=== PATIENT | female | born 1980 | race Caucasian/White ===

== ENCOUNTER 2020-04-02 20:59 | Emergency (ER) | payer OTHER, SELFPAY ==
[2020-04-02 21:00] VITALS: BP 180/107; PULSE 99; RESP 20; TEMP 36.1; O2SAT 100
--- NOTE | 2020-04-02 21:19 | ED.GENADULT ---
HPI - General Adult General Chief complaint: Unspecified Stated complaint: Strep throat, throat pain Time Seen by Provider: 04/02/20 21:07 Source: patient Mode of arrival: ambulatory Limitations: no limitations History of Present Illness HPI narrative: This is a 40 year old female that presents to the ER for sore throat x 3 days. Associated with congestion and otalgia. Reports her boyfriend was recently diagnosed with strep. Denies fever or cough. Related Data Home Medications Medication Instructions Recorded Confirmed No Home Medications 04/02/20 04/02/20 Allergies Allergy/AdvReac Type Severity Reaction Status Date / Time No Known Allergies Allergy Verified 04/02/20 21:34 SEA FOOD Allergy Mild MAKES Uncoded 04/02/20 21:34 TONGUE/THROAT ITCH Review of Systems Review of Systems: Narrative: CONSTITUTIONAL: Denies fever ENT: Reports rhinorrhea, congestion, sore throat and otalgia. RESPIRATORY: Denies cough All systems reviewed & are unremarkable except as noted in HPI and below PMFSH Past Medical History Medical History (Updated 04/02/20 @ 21:59 by Evie Simon PA-C) History of migraine Surgical History Surgical History (Updated 04/02/20 @ 21:21 by Evie Simon PA-C) History of Exam Narrative: Exam Narrative: GENERAL: Well-appearing, obese, and in no acute distress. HEAD: Normocephalic, atraumatic. EYES: EOMI. ENT: Turbinates swollen and pale. Mucous membranes moist. Oropharynx with mild tonsillar hypertrophy and erythema, no exudate or other lesions. Uvula midline. No trismus. Bilateral TMs pearly garcia non-bulging NECK: Supple. No adenopathy or masses. CHEST: Clear to auscultation. No respiratory distress. No wheezes rales or rhonchi HEART: Regular rate and rhythm. No murmur heard. Normal peripheral pulses. EXTREMITIES: Normal range of motion. No edema. SKIN: Warm, dry, no rash. NEURO: No focal deficits. Alert and oriented x3. PSYCH: Normal mood and affect Course Vital Signs Vital signs: Vital Signs Temperature 97 F L 04/02/20 21:00 Pulse Rate 99 04/02/20 21:00 Respiratory Rate 20 04/02/20 21:00 Blood Pressure 180/107 H 04/02/20 21:00 Pulse Oximetry 100 04/02/20 21:00 Temperature 97 F L 04/02/20 21:00 Pulse Rate 99 04/02/20 21:00 Respiratory Rate 20 04/02/20 21:00 Blood Pressure 180/107 H 04/02/20 21:00 Pulse Oximetry 100 04/02/20 21:00 Medical Decision Making MDM Narrative Medical decision making narrative: Patient presents the emergency department for sore throat x3 days. She is afebrile and nontoxic-appearing. Oropharynx with mild, symmetric tonsillar hypertrophy and erythema. Uvula is midline. Rapid strep was negative. Spoke with patient about treatment of viral pharyngitis. She is to follow-up with primary care doctor. She was given warnings to return to the ER Vital Signs Vital Signs: Vital Signs Temperature 97 F L 04/02/20 21:00 Pulse Rate 99 04/02/20 21:00 Respiratory Rate 20 04/02/20 21:00 Blood Pressure 180/107 H 04/02/20 21:00 Pulse Oximetry 100 04/02/20 21:00 Temperature 97 F L 04/02/20 21:00 Pulse Rate 99 04/02/20 21:00 Respiratory Rate 20 04/02/20 21:00 Blood Pressure 180/107 H 04/02/20 21:00 Pulse Oximetry 100 04/02/20 21:00 Lab Data Lab results reviewed: Yes I reviewed the patient's lab results. Labs: Strep Screen Presumptive Negative *(Reference Range: Negative)* Critical Care Time Critical Care Time Critical Care Time: No Discharge Plan Discharge Clinical Impression: Pharyngitis Qualifiers: Pharyngitis/tonsillitis etiology: unspecified etiology Qualified Code(s): J02.9 - Acute pharyngitis, unspecified Patient Disposition: Home, Self-Care Condition: Stable Instructions: Antibiotic Form, Pharyngitis (ED) Additional Instructions: Return to the emergency department for worsening sympt
[2020-04-02 22:07] VITALS: BP 152/104; PULSE 91; RESP 16
== END 2020-04-02 22:16 | disposition home or self-care (01) ==
PROVIDERS: Emergency Provider Emergency Medicine
DX: J02.9 Acute pharyngitis, unspecified (principal)
CPT/HCPCS: 87081; 87880; 99283; A9270

== ENCOUNTER 2020-05-28 18:40 | Emergency (ER) | payer OTHER, SELFPAY ==
[2020-05-28 18:57] VITALS: BP 142/69; PULSE 91; RESP 16; TEMP 37.2; O2SAT 100
--- NOTE | 2020-05-28 19:06 | ED.SKABFB ---
HPI - Skin/Abscess/Foreign Bdy General Chief complaint: Skin/Abscess/Foreign Body Stated complaint: Hives Time Seen by Provider: 05/28/20 19:06 Source: patient Mode of arrival: ambulatory Limitations: no limitations History of Present Illness HPI narrative: Asia Owens is a 40-year-old female who comes to [facility] with hives over abdomen back legs and face there is no respiratory compromise no swelling of the mouth or mucosal membranes; started on Monday, on abdomen, scrotal or since then. Denies any drug intake., Change in detergent, any change in food Related Data Allergies Allergy/AdvReac Type Severity Reaction Status Date / Time No Known Allergies Allergy Verified 05/28/20 18:52 SEA FOOD Allergy Mild MAKES Uncoded 05/28/20 18:52 TONGUE/THROAT ITCH Review of Systems Review of Systems: Narrative: CONSTITUTIONAL: Denies fever, chills, sweats. EYES: Denies visual changes, redness, discharge. ENT: Denies rhinorrhea, congestion, sore throat, otalgia. CARDIOVASCULAR: Denies chest pain, palpitations, edema. RESPIRATORY: Denies dyspnea, wheezing, cough GASTROINTESTINAL: Denies abdominal pain, nausea, vomiting, diarrhea. GENITOURINARY: Denies dysuria, hematuria, abnormal discharge SKIN: Denies rash or itching. Red papular rash covers chest back thighs legs feet there are hives on her ears and on her cheeks NEUROLOGIC: Denies numbness, or focal weakness. PSYCHIATRIC: Denies anxiety or depression. PMFSH Past Medical History Medical History History of migraine Surgical History Surgical History History of Social History Social History (Updated 05/28/20 @ 19:09 by Fransisca Aguirre CNP) Smoking status: Never smoker Alcohol intake: current Gender identity (if verbalized by the patient): Female Comments At time of signature, I agree with nursing past medical, surgical, social and family history. There is no relevant family history pertinent to the presenting complaint. Exam Narrative: Exam Narrative: GENERAL: This is a well-nourished, well-developed patient, in moderate distress. HEAD: normocephalic, atraumatic. EYES: Sclera clear/white. Vision is grossly intact. EARS: External ears normal, . Hearing grossly intact. NOSE: External nose normal without nasal discharge, nares without redness, no rhinorrhea. THROAT: Mucous membranes moist, posterior pharynx no swelling of the pharynx or mouth no respiratory difficulty no change in voice NECK: Neck supple, non-tender CARDIOVASCULAR: Regular rate and rhythm without murmurs, gallops, or rubs. RESPIRATORY: Clear to auscultation. Breath sounds equal bilaterally. No wheezes, rales, or rhonchi. GASTROINTESTINAL: Abdomen soft, non-tender, SKIN: warm, intact with papular rash over her chest back thighs feet arms left ear and cheeks; rash is pruritic. NEURO: awake, alert, and oriented to person, place and time. There were no obvious focal neurologic abnormalities. Steady gait EXTREMITIES: Normal range of motion. BACK: Nontender without deformity Course Course Emergency Course: Patient comes to [facility] with whole body rash of unknown etiology it started on Monday and is spread since then; no respiratory difficulty no swelling of the mouth or pharynx Started on Solu-Medrol 25 mg IM and Pepcid 20 mg p.o. We will start patient on Medrol Dosepak with Pepcid and Benadryl Patient to go to the emergency room if rash and symptoms of shortness of breath or swelling of mouth. Follow-up with primary care physician Vital Signs Vital signs: Vital Signs Temperature 98.9 F 05/28/20 18:57 Pulse Rate 91 05/28/20 18:57 Respiratory Rate 16 05/28/20 18:57 Blood Pressure 142/69 H 05/28/20 18:57 Pulse Oximetry 100 05/28/20 18:57 Temperature 98.9 F 05/28/20 18:57 Pulse Rate 91 05/28/20 18:57 Respiratory Rate 16 05/28/20
[2020-05-28] MEDS: FAMOTIDINE 20 MG TABLET PO (19:14)
[2020-05-28] MEDS: methylPREDNISolone SOD SUCC 125 MG VIAL IM (19:14)
== END 2020-05-28 19:49 | disposition home or self-care (01) ==
PROVIDERS: Emergency Provider Nurse Practitioner
DX: R21 Rash and other nonspecific skin eruption (principal); T78.40XA Allergy, unspecified, initial encounter
CPT/HCPCS: 96372; 99213; A9270; G0463; J2930

== ENCOUNTER 2021-04-05 09:51 | Emergency (ER) | payer OTHER, SELFPAY ==
[2021-04-05 10:02] VITALS: BP 138/91; PULSE 90; RESP 16; TEMP 36.6; O2SAT 100
--- NOTE | 2021-04-05 10:33 | ED.DENTAL ---
HPI - Dental/Oral General Chief complaint: Dental/Oral Stated complaint: Tooth Pain Time Seen by Provider: 04/05/21 10:31 Mode of arrival: ambulatory Limitations: no limitations History of Present Illness HPI Narrative: 41-year-old female presents with concern for left lower dental pain. She reports swelling in the left lower jaw. Reports she has cavities and irritated gums in that area. Reports she has a dentist appointment on . Reports the pain is 10/10. Reports she has been taking Aleve. She reports when she takes ibuprofen she gets chills and shakes. She denies trouble swallowing, trouble speaking, fever. MD Complaint: tooth pain Severity scale (1-10): 10 Related Data Allergies Allergy/AdvReac Type Severity Reaction Status Date / Time No Known Allergies Allergy Verified 04/05/21 10:19 SEA FOOD Allergy Mild MAKES Uncoded 04/05/21 10:19 TONGUE/THROAT ITCH Review of Systems Review of Systems: CONSTITUTIONAL: Denies malaise, chills, sweats, or fever. EYES: Denies visual changes ENT: Denies rhinorrhea, congestion, sinus pain, otalgia or sore throat. Reports left lower dental pain and left jaw swelling CARDIOVASCULAR: Denies chest pain, palpitations RESPIRATORY: Denies cough or dyspnea. SKIN: Denies rash or itching. MUSCULOSKELETAL: Denies myalgia. NEUROLOGIC: Denies numbness, weakness, or headache. All systems reviewed & are unremarkable except as noted in HPI and below PMFSH Past Medical History Medical History History of migraine Surgical History Surgical History History of Social History Social History (Updated 05/28/20 @ 19:09 by Fransisca Aguirre CNP) Smoking status: Never smoker Alcohol intake: current Gender identity (if verbalized by the patient): Female Comments At time of signature, agree with nursing past medical, surgical, social and family history. There is no relevant family history pertinent to the presenting complaint Exam Narrative: GENERAL: Well-appearing, well-nourished, and in no acute distress. HEAD: Normocephalic, atraumatic. EYES: PERRLA, sclera clear ENT: Nares clear, turbinates pink, no rhinorrhea or epistaxis. Mucous membranes moist. TM pearly garcia with sharp light reflex bilaterally; no tragal tenderness. Oropharynx without erythema or lesions. Tonsils not enlarged and without exudate. Caries noted to teeth 20, 19, 18 with gingival erythema, no periapical abscess noted NECK: Supple. No lymphadenopathy. CHEST: No respiratory distress. Speaks in full sentences. HEART: Regular rate and rhythm. SKIN: Warm, dry, no visible rash. NEURO: Alert and oriented x3. PSYCH: Normal mood and affect Course Course Emergency Course: Patient is aware of diagnosis, understands and agrees to treatment plan. Anticipatory guidance given. Patient agrees to follow-up as directed and is aware of reasons to seek care at the emergency department. Portions of this record may have been created with voice recognition software Vital Signs Vital signs: Vital Signs Temperature 97.9 F 04/05/21 10:02 Pulse Rate 90 04/05/21 10:02 Respiratory Rate 16 04/05/21 10:02 Blood Pressure 138/91 H 04/05/21 10:02 Pulse Oximetry 100 04/05/21 10:02 Temperature 97.9 F 04/05/21 10:02 Pulse Rate 90 04/05/21 10:02 Respiratory Rate 16 04/05/21 10:02 Blood Pressure 138/91 H 04/05/21 10:02 Pulse Oximetry 100 04/05/21 10:02 Reviewed. Procedures Nerve Block Nerve Block 1: Nerve block date: 04/05/21 Nerve block time: 10:40 Time out performed: Yes Local Anesthetic: lidocaine 1% and with epi Amount of anesthesia used (mL): 1.5 Side: left Intraoral Nerve Block: inferior alveolar Procedure Successful: Yes Patient Tolerated Procedure: well Complications: none MDM - Dental/Oral MDM
== END 2021-04-05 11:00 | disposition home or self-care (01) ==
PROVIDERS: Emergency Provider Nurse Practitioner
DX: K04.7 Periapical abscess without sinus (principal)
CPT/HCPCS: 64999; 99213; G0463

== ENCOUNTER 2022-01-31 08:38 | Emergency (ER) | payer OTHER, SELFPAY ==
--- NOTE | ~2022-01-31 | XR_ITS ---
EXAMINATION: XR knee LT min 4V DATE: 01/31/2022 09:26 INDICATION: Left knee pain TECHNIQUE: Four views of the left knee were obtained. COMPARISON: None. FINDINGS: Alignment is normal. No fracture or osteochondral lesion. There is mild tricompartmental os teoarthritis characterized by tiny marginal osteophytes. No joint effusion/synovitis. Soft tissues a re unremarkable. IMPRESSION: 1. No acute osseous abnormality. Reviewed, dictated and finalized at location A.
[2022-01-31 08:56] VITALS: BP 143/87; PULSE 92; RESP 18; TEMP 36.2; O2SAT 100
--- NOTE | 2022-01-31 08:56 | ED.LOWEXIN ---
HPI - Extremity Injury (Lower) General Chief Complaint: Extremity Injury, Lower Stated Complaint: Left Knee Pain Time Seen by Provider: 01/31/22 08:56 Source: patient, RN notes reviewed and old records reviewed Mode of arrival: ambulatory Limitations: no limitations History of Present Illness HPI Narrative: 41-year-old female presents to the [facility] with complaints of left knee pain for several weeks. Has tried multiple [id number]-juypbur products with minimal to no relief. Related Data Allergies Allergy/AdvReac Type Severity Reaction Status Date / Time SEA FOOD Allergy Mild MAKES Uncoded 01/31/22 08:55 TONGUE/THROAT ITCH Review of Systems Review of Systems: All systems reviewed & are unremarkable except as noted in HPI and below Constitutional: Constitutional: Reports no additional constitutional complaints, Denies chills and Denies fever(s) Eyes: Eyes: Reports no additional eye complaints ENT: Reports system reviewed and no additional complaints, except as documented Cardiovascular: Cardiovascular: Reports no additional cardiovascular complaints Respiratory: Respiratory: Reports no additional respiratory complaints Gastrointestinal: Gastrointestinal: Reports no additional gastrointestinal complaints Musculoskeletal: Musculoskeletal: Reports as per HPI and Reports arthralgias (Left knee) Integumentary/Breasts: Skin/Breast: Reports system reviewed and no additional complaints, except as docu Neurologic: Reports system reviewed and no additional complaints, except as documented Psychiatric: Psychiatric: Reports no additional psychiatric complaints Allergic/Immunologic: Allergic/Immunologic: Reports no additional allergic/immunologic complaints PMFSH Past Medical History Medical History History of migraine Surgical History Surgical History History of Social History Social History Smoking status: Never smoker Alcohol intake: current Gender identity (if verbalized by the patient): Female Comments At the time of my signature, I reviewed and agree with the nursing past medical, surgical, social, and family history. There is no relevant family history pertinent to the patient complaint. Exam Const: General: healthy appearing, no acute distress, alert and well nourished Nutritional Appearance: well nourished Orientation/consciousness: patient oriented x3 Limitations: no limitations HENMT: Head: normal to inspection Ears: external ears normal Eyes: General: appearance normal, both eyes and all related structures Pupils: Equal, round and reactive pupils present Neck: Neck: normal visual inspection, no lymphadenopathy and no meningeal signs Chest: Chest palpation & inspection: normal inspection of the chest Resp: Effort & Inspection: normal respiratory effort and no use of accessory muscles Auscultation: clear to auscultation bilaterally, no crackles, no rales, no rhonchi and no wheezes Cardio: Rate: regular rate Rhythm: regular rhythm Back/Spine/Pelvis: Cervical Spine: normal cervical lordosis Thoracic/Lumbar Spine: thoracic and lumbar spine normal to inspection Skin: General skin exam: normal color Rashes: no rashes Wounds: no wounds Neuro: General: patient oriented x3, moves all extremities, no meningeal signs and no focal motor deficits Cranial nerves: Yes Equal, round and reactive pupils present Speech: normal speech Gait exam (Neuro): Normal gait present Extrem: General: normal to inspection, full ROM and capillary refill normal Left lower extremity: full ROM and knee Details: tenderness Other: Walks with a slight limp favoring the left side. Psych: Appearance: grossly normal and well kempt Mental Status: mental status grossly normal Affect: normal affect Attitude: cooperative Thought content: Yes
== END 2022-01-31 09:57 | disposition home or self-care (01) ==
PROVIDERS: Emergency Provider Nurse Practitioner
DX: M17.9 Osteoarthritis of knee, unspecified (principal)
CPT/HCPCS: 73564; 99213; G0463

== ENCOUNTER 2022-03-26 08:42 | Emergency (ER) | payer OTHER, SELFPAY ==
--- NOTE | 2022-03-26 09:27 | ED.URI ---
HPI - URI/Sore Throat General Stated Complaint: pink eye,grace,sore throat,head pressure Time Seen by Provider: 03/26/22 09:50 Source: patient and RN notes reviewed Mode of arrival: ambulatory Limitations: no limitations History of Present Illness HPI Narrative: 42-year-old female presents concern for nasal congestion, rhinorrhea, head pressure, sore throat. Reports her are itching and had drainage. Reports her daughter has similar symptoms. MD elicited complaint: rhinorrhea and other (Eye itching) Related Data Home Medications Medication Instructions Recorded Confirmed No Home Medications 03/26/22 03/26/22 Allergies Allergy/AdvReac Type Severity Reaction Status Date / Time SEA FOOD Allergy Mild MAKES Uncoded 03/26/22 09:50 TONGUE/THROAT ITCH Review of Systems Review of Systems: CONSTITUTIONAL: Denies malaise, chills, sweats, or fever. EYES: Denies visual changes. Reports bilateral itching, redness, green discharge. ENT: Reports rhinorrhea, congestion. Denies sinus pain, otalgia and sore throat. CARDIOVASCULAR: Denies chest pain, palpitations, or edema. RESPIRATORY: Denies cough. Denies dyspnea. GASTROINTESTINAL: Denies abdominal pain, nausea, vomiting, diarrhea SKIN: Denies rash or itching. MUSCULOSKELETAL: Denies myalgia. NEUROLOGIC: Denies headache. All systems reviewed & are unremarkable except as noted in HPI and below PMFSH Past Medical History Medical History History of migraine Surgical History Surgical History History of Social History Social History Smoking status: Never smoker Alcohol intake: current Gender identity (if verbalized by the patient): Female Comments At time of signature, agree with nursing past medical, surgical, social and family history. There is no relevant family history pertinent to the presenting complaint Exam Narrative: GENERAL: Well-appearing, well-nourished, and in no acute distress. HEAD: Normocephalic EYES: PERRLA,. Bilateral sclerae and conjunctivae mildly injected without drainage ENT: Nares clear, clear discharge. Mucous membranes moist. Tonsils not enlarged and without exudate, no drooling, no hoarseness, no trismus, uvula midline. NECK: Supple. No lymphadenopathy CHEST: No respiratory distress, speaks in full sentences. HEART: Regular rate and rhythm. SKIN: Warm, dry, no rash. NEURO: Alert and oriented x3. PSYCH: Normal mood and affect Course Course Emergency Course: Patient is aware of diagnosis, understands and agrees to treatment plan. Anticipatory guidance given. Patient agrees to follow-up as directed and is aware of reasons to seek care at the emergency department. Portions of this record may have been created with voice recognition software Level of Care: Express Care Visit Vital Signs Vital signs: Reviewed. MDM - URI/Sore Throat MDM Narrative Medical decision making narrative: Differential diagnosis considered: Parmar virus, strep pharyngitis, allergic rhinitis, upper respiratory tract infection, sinusitis, rhinosinusitis, nasopharyngitis. viral pharyngitis, otitis media, otitis externa, pneumonia, bronchitis, viral cough syndrome, viral syndrome, and influenza. Exam findings show no acute concerns or changes; patient is non-toxic appearing and is in no distress. Patient is appropriate for outpatient treatment and follow-up. Lab Data Attestation: I reviewed the patient's lab results. Critical Care Time Critical Care Time Critical Care Time: No Discharge Plan Discharge Clinical Impression: Conjunctivitis Patient Disposition: Home, Self-Care Condition: Stable Instructions: Conjunctivitis (ED) Additional Instructions: Do not touch or rub your eye. Use a warm or cool washcloth on your eye for comfort Use eyedrops as directed Practice
[2022-03-26 09:45] VITALS: BP 140/82; PULSE 80; RESP 18; TEMP 36.4; O2SAT 100
== END 2022-03-26 10:39 | disposition home or self-care (01) ==
PROVIDERS: Emergency Provider Nurse Practitioner
DX: H10.9 Unspecified conjunctivitis (principal)
CPT/HCPCS: 99211; G0463

== ENCOUNTER 2022-04-04 08:10 | Emergency (ER) | payer OTHER, SELFPAY ==
[2022-04-04 08:15] VITALS: BP 132/77; PULSE 88; RESP 12; TEMP 36.6; O2SAT 100
--- NOTE | 2022-04-04 08:39 | ED.URI ---
HPI - URI/Sore Throat General Chief Complaint: Upper Respiratory Infection Stated Complaint: Ear/Nose/ Throat Time Seen by Provider: 04/04/22 08:13 Source: patient Mode of arrival: ambulatory Limitations: no limitations History of Present Illness HPI Narrative: 42-year-old female presents to [facility] care with complaints of sore throat, intermittent fevers, cough, congestion and runny nose for the past 10 days. Patient reports that she was evaluated here on March 26, diagnosed with conjunctivitis and was given and prescription for neomycin eye drops. Patient reports that she feels that her symptoms have worsened. Patient's daughter currently has similar symptoms. Patient has been taking [id number] ibuprofen and Tylenol with minimal relief. Patient is nonsmoker. Patient denies recent travel. MD elicited complaint: cough, sore throat, rhinorrhea and nasal congestion Onset (ago): day(s) () Able to tolerate fluids by mouth: Yes Treatments prior to arrival: acetaminophen and ibuprofen Related Data Allergies Allergy/AdvReac Type Severity Reaction Status Date / Time No Known Allergies Allergy Verified 04/04/22 08:32 Review of Systems Constitutional: Constitutional: Reports chills, Denies fatigue, Reports fever(s) and Denies weakness Eyes: Comments: Redness, watering, irritation to bilateral eyes, right is worse than left ENT: Denies vertigo, Denies dizziness, Reports nasal congestion and Reports sore throat Respiratory: Respiratory: Denies chest congestion, Reports cough, Denies dyspnea and Denies wheezing Gastrointestinal: Gastrointestinal: Denies abdominal pain, Denies diarrhea, Denies nausea and Denies vomiting Integumentary/Breasts: Skin/Breast: Denies rash PMFSH Past Medical History Medical History History of migraine Surgical History Surgical History History of Social History Social History Smoking status: Never smoker Alcohol intake: current Gender identity (if verbalized by the patient): Female Comments At time of signature, I agree with nursing past medical, surgical, social and family history. There is no relevant family history pertinent to the presenting complaint. Exam Const: General: healthy appearing, no acute distress and alert Nutritional Appearance: well nourished Orientation/consciousness: patient oriented x3 Limitations: no limitations HENMT: Ears: external ears normal and TM's normal bilaterally Face/Nose/Sinus: Normal external nose present and Nasal discharge present Mouth: Yes moist mucous membranes Teeth and gingiva: dentition normal Throat: uvula midline Other: Mild erythema noted to posterior pharynx Eyes: Conjunctivae: conjunctival abnormality right discharge Pupils: Equal, round and reactive pupils present Direct Ophthalmoscopy: no photophobia Neck: Neck: normal visual inspection Resp: Effort & Inspection: normal respiratory effort and not labored Auscultation: clear to auscultation bilaterally, no crackles, no rales and no rhonchi Cardio: Rate: regular rate Rhythm: regular rhythm Heart sounds: no murmurs Skin: General skin exam: normal color Rashes: no rashes Wounds: no wounds Neuro: General: patient oriented x3 Speech: normal speech Gait exam (Neuro): Normal gait present Psych: Affect: normal affect Attitude: cooperative Course Course Level of Care: Express Care Visit Vital Signs Vital signs: Vital Signs Temperature 36.6 C 04/04/22 08:15 Pulse Rate 88 04/04/22 08:15 Respiratory Rate 12 04/04/22 08:15 Blood Pressure 132/77 04/04/22 08:15 Pulse Oximetry 100 04/04/22 08:15 Temperature 36.6 C 04/04/22 08:15 Pulse Rate 88 04/04/22 08:15 Respiratory Rate 12 04/04/22 08:15 Blood Pressure 132/77 04/04/22 08:15 Pulse Oximetry 10
== END 2022-04-04 08:54 | disposition home or self-care (01) ==
PROVIDERS: Emergency Provider Nurse Practitioner Family
DX: J06.9 Acute upper respiratory infection, unspecified (principal)
CPT/HCPCS: 99213; G0463

== ENCOUNTER 2023-07-10 14:21 | Emergency (ER) | payer OTHER, SELFPAY ==
--- NOTE | 2023-07-10 14:28 | ED.GENADULT ---
HPI - General Adult General Chief complaint: Dizziness Stated complaint: Dizziness/Head Tingling Time Seen by Provider: 07/10/23 14:45 Mode of arrival: ambulatory Limitations: no limitations History of Present Illness HPI narrative: 43-year-old female presents with concern for dizziness, headache, feeling shaky, tingling in her head neck, cheeks flushing, blurry vision. She reports nausea with ?throwing up in my mouth?. She reports symptoms started last night. Reports they worsen when she stands up. 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 She reports she drives with the windows down. She reports she has been having urine frequency without dysuria, urgency, abdominal pain. She denies chills, fever, sweats. MD complaint: Dizziness Related Data Home Medications Medication Instructions Recorded Confirmed No Home Medications 07/10/23 07/10/23 Allergies Allergy/AdvReac Type Severity Reaction Status Date / Time No Known Allergies Allergy Verified 07/10/23 14:49 Review of Systems Review of Systems: CONSTITUTIONAL: Denies malaise, chills, sweats, or fever. Reports feeling shaky, cheeks flushing EYES: Reports blurry vision ENT: Denies rhinorrhea, congestion, sinus pain, otalgia or sore throat. CARDIOVASCULAR: Denies chest pain, palpitations, or edema. RESPIRATORY: Denies cough or dyspnea. GASTROINTESTINAL: Denies abdominal pain, diarrhea, bloody, or mucous stools.. Reports nausea GENITOURINARY: Denies dysuria or hematuria. SKIN: Denies rash or itching. MUSCULOSKELETAL: Denies back pain, joint pain, or myalgia. NEUROLOGIC: Reports dizziness, headache, tingling in the head and neck PSYCHIATRIC: Denies anxiety or depression. All systems reviewed & are unremarkable except as noted in HPI and below PMFSH Past Medical History Medical History History of migraine Surgical History Surgical History History of Social History Social History Smoking status: Never smoker Alcohol intake: current Gender identity (if verbalized by the patient): Female Comments At time of signature, agree with nursing past medical, surgical, social and family history. There is no relevant family history pertinent to the presenting complaint Exam Narrative: GENERAL: Well-appearing, well-nourished, and in no acute distress. HEAD: Normocephalic, atraumatic. EYES: PERRLA, sclera clear, and EOMI. No nystagmus. ENT: Nares clear. Mucous membranes moist. NECK: Supple. CHEST: No respiratory distress. Clear to auscultation. No bony deformities, no asymmetry. Speaks in full sentences. HEART: Regular rate and rhythm. No murmur heard. Normal peripheral pulses. ABDOMEN: Obese EXTREMITIES: Grossly Normal range of motion. No pitting edema. Grossly Normal strength and sensation. SKIN: Warm, dry, no visible rash. NEURO: Alert and oriented x3. No focal deficits. Cranial nerves II through XII grossly intact PSYCH: Normal mood and affect Course Course Emergency Course: Patient was placed on non-rebreather due to suspicion of possible exposure to carbon monoxide. Patient's urine is normal, blood glucose is normal. I feel patient needs further evaluation in the emergency room. Patient refuses ambulance transfer to ER she is unable to find a ride. She reports she lives 5 minutes away and will drive home. She has signed AMA paperwork Portions of this record may have been created with voice recognition software Level of Care: Express Care Visit Vital Signs Vital signs: Reviewed. Medical Decision Making MDM Narrative Medical decision making narrative: The patient has requested to leave the ED against medical advice. The patient reason(s) for leaving include, but are not limited
[2023-07-10 14:34] VITALS: BP 162/102; PULSE 88; RESP 20; TEMP 36.9; O2SAT 100
--- NOTE | 2023-07-10 14:47 | ECG_ITS ---
Measurements Intervals [place] Rate: 88 P: 44 [place]: 157 QRS: 17 QRSD: 88 T: 21 QT: 356 QTc: 432 Interpretive Statements SINUS RHYTHM BASELINE ARTIFACT- I, II, III, AVR, AVL, AVF NORMAL ECG NO PREVIOUS ECG AVAILABLE FOR COMPARISON Electronically Signed On 07-10-2023 14:51:11 CDT by Ed Vaughan D.O.
[2023-07-10 14:50] VITALS: PULSE 80; RESP 18; O2SAT 100
[2023-07-10 15:14] LABS: Glucose Point of Care 93 mg/dl (65-105)
[2023-07-10 15:39] VITALS: BP 145/91
[2023-07-10 15:46] VITALS: BP 145/91; PULSE 80; RESP 18; O2SAT 100
== END 2023-07-10 15:56 | disposition left against medical advice (07) ==
PROVIDERS: Emergency Provider Nurse Practitioner
DX: R42 Dizziness and giddiness (principal)
CPT/HCPCS: 81003; 82948; 93005; 99213; G0463

== ENCOUNTER 2023-10-21 16:52 | Emergency (ER) | payer OTHER, SELFPAY ==
[2023-10-21 17:06] VITALS: BP 146/86; PULSE 106; RESP 18; TEMP 38.4; O2SAT 100
--- NOTE | 2023-10-21 17:15 | ED.URI ---
HPI - URI/Sore Throat General Chief Complaint: Weakness Stated Complaint: body pains/weakness Time Seen by Provider: 10/21/23 17:15 Source: patient Mode of arrival: ambulatory Limitations: no limitations History of Present Illness HPI Narrative: 43-year-old female presents with complaint of headache, body aches, fever, fatigue starting this morning. Has not taking any gatm-gek-jggghid medications to treat fever. Denies nausea vomiting diarrhea. Denies cough, congestion, sore throat. All systems reviewed and negative except as noted above. Related Data Home Medications Medication Instructions Recorded Confirmed hydrochlorothiazide 25 mg tablet 25 mg PO DAILY 10/21/23 10/21/23 terbinafine HCl 250 mg tablet 250 mg PO DAILY 10/21/23 10/21/23 Allergies Allergy/AdvReac Type Severity Reaction Status Date / Time No Known Allergies Allergy Verified 10/21/23 16:59 Review of Systems Review of Systems: CONSTITUTIONAL: Reports fever, chills, or sweats. EYES: Denies visual changes, redness, or discharge. ENT: Denies rhinorrhea, congestion, sore throat, or otalgia. CARDIOVASCULAR: Denies chest pain, palpitations, or edema. RESPIRATORY: Denies cough or dyspnea. GASTROINTESTINAL: Denies abdominal pain, nausea, vomiting, or diarrhea. GENITOURINARY: Denies dysuria or hematuria. SKIN: Denies rash or itching. MUSCULOSKELETAL: Denies back pain, joint pain. Reports myalgia. NEUROLOGIC: reports headache. Denies numbness, or weakness. PSYCHIATRIC: Denies anxiety or depression. All other systems reviewed are negative, except as documented in HPI. PMFSH Past Medical History Medical History History of migraine Surgical History Surgical History History of Social History Social History Smoking status: Never smoker Alcohol intake: current Gender identity (if verbalized by the patient): Female Comments At time of signature, agree with nursing past medical, surgical, social and family history. There is no relevant family history pertinent to the presenting complaint. Exam Narrative: GENERAL: This is a well-nourished, well-developed patient, in no apparent distress. HEAD: normocephalic, atraumatic. EYES: PERRL. Sclera clear/white. Vision is grossly intact. EARS: External ears normal, auditory canals clear and without drainage, TMs normal without perforation. Hearing grossly intact. NOSE: External nose normal with no obvious nasal discharge, nares without redness, no rhinorrhea. THROAT: Mucous membranes moist, posterior pharynx clear. NECK: Neck supple, non-tender without lymphadenopathy, masses or thyromegaly. CARDIOVASCULAR: Regular rate and rhythm without murmurs, gallops, or rubs. RESPIRATORY: Clear to auscultation. Breath sounds equal bilaterally. No wheezes, rales, or rhonchi. SKIN: warm, Dry, intact with no suspicious lesions or rash, good texture and turgor. NEURO: awake, alert, and oriented to person, place and time. There were no obvious focal neurologic abnormalities. EXTREMITIES: No joint tenderness, effusion, or edema noted. Course Course Level of Care: Express Care Visit Vital Signs Vital signs: Vital Signs Temperature 38.4 C H 10/21/23 17:06 Pulse Rate 106 H 10/21/23 17:06 Respiratory Rate 18 10/21/23 17:06 Blood Pressure 146/86 H 10/21/23 17:06 Pulse Oximetry 100 10/21/23 17:06 Oxygen Delivery Room Air 10/21/23 17:06 Temperature 38.4 C H 10/21/23 17:06 Pulse Rate 106 H 10/21/23 17:06 Respiratory Rate 18 10/21/23 17:06 Blood Pressure 146/86 H 10/21/23 17:06 Pulse Oximetry 100 10/21/23 17:06 Oxygen Delivery Room Air 10/21/23 17:06 reviewed, patient given Tylenol to treat fever prior to discharge. MDM - URI/Sore Throat MDM Narrative Medical decision making narrative:
[2023-10-21 17:41] LABS: EDINFLUASCREEN Negative; EDINFLUBSCREEN Negative
== END 2023-10-21 18:00 | disposition home or self-care (01) ==
PROVIDERS: Emergency Provider Nurse Practitioner Family
DX: B34.9 Viral infection, unspecified (principal)
CPT/HCPCS: 87804; 99213; G0463

== ENCOUNTER 2024-10-21 22:53 | Emergency (ER) | payer OTHER, SELFPAY ==
--- OUTSIDE RECORDS SUMMARY | 2024-10-21 22:54 | XMS_ITS | Clinical Summary ---
Author Organization [facility] Address [address] [place] [id number] Care Team Providers Care Concaver Name Role Phone Bernie Clifton [facility] Primary Care Provider [phone] Allergies Active Allergy Reactions Criticality Noted Date Comments Fish Oil Itching 11/09/2023 Seafood Iodine Hives 01/02/2024 CT dye Medications lisinopril (PRINIVIL) 5 MG tablet Take 1 tablet (5 mg total) by mouth daily. Active Social History Tobacco Use Types Packs/Day Years Used Date Smoking Tobacco: Never Smokeless Tobacco: Never Tobacco Cessation:Counseling Given: Not Answered Alcohol Use Standard Drinks/Week Comments Never 0 (1 standard drink = 0.6 oz pur e alcohol) Comments No Sex and Gender Information Value Date Recorded Sex Assigned at Not on file Legal Sex Female 1:38 PM CDT Gender Identity Not on file Sexual Orientation Not on file Last Filed Vital Signs Vital Sign Reading Time Taken Comments Blood Pressure 137/88 01/02/2024 3:20 PM CDT Pulse 93 01/02/2024 3:20 PM CDT Temperature 36.4 C (97.6 F) 01/02/2024 3:20 PM CDT Respiratory Rate 20 01/02/2024 3:20 PM CDT Oxygen Saturation 98% 01/02/2024 3:20 PM CDT Inhaled Oxygen Concentration - - Weight 136.4 kg (300 lb 11.3 oz) 01/02/2024 3:20 PM CDT Height 165.1 cm (5' 5) 01/02/2024 3:20 PM CDT Body Mass Index 50.04 01/02/2024 3:20 PM CDT Plan of Treatment Health Maintenance Due Date Last Done Comments Cervical Cancer Screening Pa p Smear (Age 30 to 64) Every 3 Years 1979 Colorectal Cancer Screening Colonoscopy (10 Years) 1979 Annual Physical 1982 Hepatitis B Vaccines (1 of 3 - 19+ 3-dose series) 1998 Cervical Cancer Screening Pa p with HPV Testing (Age 30 to 64) Every 5 Years 2009 Cervical Cancer Screening wi th HPV 2009 Mammogram Screening 2019 COVID-19 Vaccine (1 - 2023-2 5 season) 2023 DTaP, Tdap and Td Vaccines ( 3 - Td or Tdap) 11/05/2028 11/05/2018, 12/30/1994 Hepatitis C Completed 10/18/2023 HPV Vaccines Aged Out No longer eligi ble based on patient's age to complete this topic Meningococcal B Vaccine Aged Out No l onger eligible based on patient's age to complete this topic Meningococcal Vaccine Aged Out No asim shyam eligible based on patient's age to complete this topic Pneumococcal Vaccine: Pediatrics (0 to 5 Years) and At-Risk Patients (6 to 49 Years) Aged Out No longer eligible b ased on patient's age to complete this topic RSV Immunizations Under 20 Months Aged Out No longer eligible b ased on patient's age to complete this topic Insurance [facility] Care Teams Concaver Relationship Specialty Start Date End Date Bernie Clifton FNP-BC [address] [place] [address] [address] [place] [address] PCP - General NURSE PRACTITIONER 01/02/24
--- OUTSIDE RECORDS SUMMARY | 2024-10-21 22:55 | XMS_ITS | Referral Summary ---
Author Organization [facility] Address [address] [place] [address] Care Team Providers Care White Shoe Examiner Name Role Phone Bernie Clifton NP Primary Care Provider [phone] Allergies Active Allergy Reactions Criticality Noted Date Comments Hydrochlorothiazide Rash Medium 12/03/2023 Multiple side effects Iodinated Contrast Media Rash Medium 12/05/2023 Hives, pruritus, feeling of tongue edema (none noted on exam) [place]-3 Fatty Acids Itching Low 11/09/2023 Seafood Shellfish Containing Products Itching Low 2021 Medications mupirocin (BACTROBAN) 2 % ointmentIndication s:Minor Bacterial Skin Infections Apply topically 3 (three) times a day 22 g 11/02/19 24 Active Additional Information Patient not taking.Reported on 05/16/2024 naproxen (ALEVE) 220 mg tablet Take 1 tablet (220 mg total) by mouth every 12 (twelve) hours as needed Active erythromycin (ILOTYCIN) ophthalmic ointment PLACE INTO BOTH EYES EVERY 6 (SIX) HOURS FOR 7 DAYS. 01/02/20 24 Active olopatadine (PATANOL) 0.1 % ophthalmic solutionIndication s:Allergic Conjunctivitis Administer 1 drop into both eyes 2 (two) times a day as needed for allergies 5 mL 01/12/20 24 Active Additional Information Patient not taking.Reported on 01/18/2024 losartan (COZAAR) 25 mg tablet Take 1 tablet (25 mg total) by mouth daily 30 tablet 11 01/18/20 24 10/03/2 025 Active omeprazole (PriLOSEC) 20 mg capsule Take 1 capsule (20 mg total) by mouth daily 90 capsule 1 01/18/20 025 Active Additional Information Patient not taking.Reported on 05/16/2024 levothyroxine (SYNTHROID) 25 mcg tablet TAKE 1 TABLET BY MOUTH EVERY DAY 90 tablet 1 02/12/20 24 Active Additional Information Patient not taking.Reported on 05/16/2024 acetaminophen-aspi rin-caffeine (EXCEDRIN MIGRAINE) 250-250-65 mg per tablet Take 1 tablet by mouth every 6 (six) hours as needed Active acetaminophen-caff eine 500-65 mg tablet Take by mouth Active Active Problems Problem Noted Date Diagnosed Date Other chest pain 01/21/2024 History of hypothyroidism 11/02/2023 Assessment & Plan (01/21/2024 6:52 PM CDT): She thinks she is having side effects from the levothyroxine such as hair falling out. She is only taking 1/2 of the tablet. We will recheck a TSH T4 and TPO levels. Will determine what to do with the levothyroxine after labs return Assessment & Plan (11/02/2023 9:55 AM CDT): TSH was in upper limits of normal at last office visit. In 2018 it was 8. I am going to reorder the TSH with a free T3, free T4, and TPO Morbid (severe) obesity due to excess calories 0 10/18/2023 Assessment & Plan (10/18/2023 2:01 PM CDT): BMI Follow-up includes: exercise counseling. Body mass index (BMI) 45.0-49.9, adult Assessment & Plan (01/21/2024 6:56 PM CDT): BMI Follow-up includes: exercise counseling. Hypertension, essential 10/18/2023 Assessment & Plan (01/21/2024 6:51 PM CDT): Does not think she is doing well with lisinopril. Will change to losartan. 25 mg once daily. Will have her follow-up in 3 months for recheck Assessment & Plan (11/02/2023 9:54 AM CDT): Discontinue hydrochlorothiazide. I do not know she is dehydrated or this is more of a allergic type reaction to the hydrochlorothiazide. I am going to check a CBC and CMP today. Her urine dip was within normal limits. I told her to also stop the Lamisil completely. After 5-7 days when she is feeling better then will start her on lisinopril 5 mg once daily. I talked her about buying a home blood pressure cuff to monitor blood pressures at home as well. She has a follow-up already scheduled in December. Assessment & Plan (10/18/2023 2:02 PM CDT): Hypertension is newly identified. Dietary sodium restriction. Weight loss. Medication changes per orders. Blood pressure will be reassessed in 4 weeks. Will start hydrochlorothiazide 25 mg once daily Onychomycosis 10/18/2023 Assessment & Plan (10/18/2023 2:08 PM CDT): Discussed risks and benefits of medication. Will start Lamisil 250 mg once daily. Sent over 90 days and then will recheck liver enzymes. Dysphagia 10/18/2023 Assessment & Plan (10/18/2023 2:09 PM CDT): This has been a long-term problem for. Will refer to GI. Patient is aware that referral may take some time to get into GI Chronic migraine without aur a without status migrainosus, not intractable 10/18/2023 Resolved Problems Problem Noted Date Diagnosed Date Resolved Date Skin pimple 11/02/2023 01/21/2024 Assessment & Plan (11/02/2023 9:57 AM CDT): Will add mupirocin ointment topically to small ear lesion. She has not been able to swallow the Augmentin so she did not take very many of them. Immunizations Immunization Administration Dates Next Due Hep A, 3 Dose 05/05/1999 Influenza, Unspecified 01/18/2024(Deferr ed: Patient Refused),04/17/2023(Deferred: Patient Refused),04/17/2023(Deferred: Patient Refused),04/17/2022(Deferred: Patient Refused),04/17/2022(Deferred: Patient Refused) Rho (D) Immune Globulin 11/08/2018,05/30/2018 Td, adsorbed 12/30/1994 Tdap 11/05/2018 Social History Tobacco Use Types Packs/Day Years Used Date Smoking Tobacco: Never Smokeless Tobacco: Never Tobacco Cessation:Counseling Given: Not Answered AUDIT-C Answer Date Recorded Q1: How often do you have a drink containing alcohol? Never 02/14/2024 Q2: How many drinks containi ng alcohol do you have on a typical day when you are drinking? Patient does not drink Q3: How often do you have si x or more drinks on one occasion? Never 02/14/2024 PHQ-2 Answer Date Recorded PHQ-2 Total Score (If total score is 3 or more points, staff should administer the PHQ-9) 0 01/18/2024 Personal Safety Answer Date Recorded Have you ever been in or are you currently in a harmful physical or emotional relationship or is someone making you feel afraid or unsafe? Denies 07/10/2023 Comments Unknown Sex and Gender Information Value Date Recorded Sex Assigned at Not on file Legal Sex Female 11:24 PM JOB TRAINING SUPERVISOR Gender Identity Not on file Sexual Orientation Not on file Last Filed Vital Signs Vital Sign Reading Time Taken Comments Blood Pressure 128/86 05/16/2024 7:29 PM JOB TRAINING SUPERVISOR Pulse 94 05/16/2024 7:14 PM JOB TRAINING SUPERVISOR Temperature 36.7 C (98.1 F) 05/16/2024 7:14 PM JOB TRAINING SUPERVISOR Respiratory Rate 18 05/16/2024 7:14 PM JOB TRAINING SUPERVISOR Oxygen Saturation 97% 05/16/2024 7:14 PM JOB TRAINING SUPERVISOR Inhaled Oxygen Concentration - - Weight 135.2 kg (298 lb 1.6 oz) 05/16/2024 7:14 PM JOB TRAINING SUPERVISOR Height 165.1 cm (5' 5) 05/16/2024 7:14 PM JOB TRAINING SUPERVISOR Body Mass Index 49.61 05/16/2024 7:14 PM JOB TRAINING SUPERVISOR Plan of Treatment Not on file Procedures Procedure Name Priority Date/Time Associated Diagnosis Comments DIAGNOSTIC MAMMOGRAM BILATERAL W SHELBIE Schedule Routine, Read Routine (OP Routine) 04/08/2024 10:39 AM JOB TRAINING SUPERVISOR Abnormal mammogram HEPATITIS C ANTIBODY Routine 10/18/2023 2:06 PM CDT Encounter for hepatitis C screening test for low risk patient from Last 3 Months or Most Recently Relevant to Health Maintenance Results * Diagnostic Mammogram Bilateral W Shelbie (04/08/2024 10:39 AM JOB TRAINING SUPERVISOR) Anatomical Region Laterality Modality Breast Bilateral Mammography 04/08/2024 12:1 1 PM JOB TRAINING SUPERVISOR Impressions 04/08/2024 12:11 PM JOB TRAINING SUPERVISOR No mammographic or sonographic finding of malignancy in either breast. ACR BI-RADS CATEGORY 2: Benign RECOMMENDATION: Annual screening mammography in 1 year is recommended. Findings and recommendations were communicated to the patient. *The patient's information was entered into a reminder system with a target due date for the next mammogram. Electronically signed by: FRANCIA CAMEJO M.D. Narrative 04/08/2024 12:11 PM JOB TRAINING SUPERVISOR EXAM: DIAGNOSTIC MAMMOGRAM BILATERAL W SHELBIE, US BREAST BILATERAL LIMITED CLINICAL HISTORY: The patient presented for bilateral diagnostic mammography. She has a palpable area of concern in the upper outer quadrant of the right breast. TECHNIQUE: Bilateral full-field digital diagnostic mammography with computer aided detection. 3-D tomosynthesis imaging performed. Limited/targeted sonography of both breasts performed. COMPARISON: None FINDINGS: The breasts are heterogeneously dense, which may obscure small masses. A metallic BB denotes the palpable area of concern in the upper outer quadrant of the right breast with which corresponds to a low density circumscribed mass. Asymmetries in the superior aspect of both breasts efface on spot compression technique. There are no suspicious calcifications, masses, or areas of architectural distortion. Sonography of both breasts performed to ensure that there is no suspicious mass given the heterogeneously dense breast parenchymal pattern and the right palpable area of concern. Right breast ultrasound: The palpable area of concern in the right breast corresponds to a benign 2.4 x 2.3 x 1.6 cm cyst at 11:00 5 cm from the nipple. Benign-appearing subareolar ductal ectasia with avascular ductal debris. No intraductal mass identified. No suspicious solid or cystic mass identified in the upper inner quadrant or upper outer quadrant of the right breast. Left breast ultrasound: Subareolar ductal ectasia noted. No intraductal mass. Benign-appearing fibrocystic changes seen in the upper outer quadrant and upper inner quadrant. No suspicious solid or cystic mass identified in the upper inner quadrant or upper outer quadrant. Bernie Clifton NP IMG MAMMO PROCEDURES Final Re sult * Hepatitis C antibody Blood (10/18/2023 2:06 PM CDT) Hep C Ab Nonreactive Nonreactive Comment: Interpretive Data Nonreactive: Antibodies to HCV not detected. Does NOT exclude the possibility of recent exposure to HCV. Equivocal: Equivocal for HCV antibodies. Supplemental molecular testing will be automatically performed to determine infection status in accordance with current CDC screening recommendations. Reactive: Positive for HCV antibodies. This may represent current or past HCV infection. Supplemental molecular testing will be automatically performed to determine current infection status in accordance with current CDC screening recommendations. Interpretive data was last revised on 2019. Blood 10/18/2023 2:06 PM CDT 10/18/2023 8:13 PM CDT Bernie Clifton NP LAB MICROBIOLOGY - GENERAL OR DERABLES Final Result [facility] [id number] [facility] Department [place] [address] from Last 3 Months or Most Recently Relevant to Health Maintenance Insurance [facility] Care Teams White Shoe Examiner Relationship Specialty Start Date End Date Bernie Clifton NP [facility][note 3] [facility] [address] [place] [address] PCP - General Family Medicine 09/26/24
--- OUTSIDE RECORDS SUMMARY | 2024-10-21 22:55 | XMS_ITS | Clinical Summary ---
Author Organization [facility] Address [address] [place] [address] Phone Care Team Providers Care Cogeneration Technician Name Role Phone Unavailable Primary Care Provider Unavailabl e Allergies Active Allergy Reactions Criticality Noted Date Comments Hydrochlorothiazide Other (See Comments) 12/03/2023 Multiple side effects Iodinated Contrast Media Rash Low 12/05/2023 Hives, pruritus, feeling of tongue edema (none noted on exam) Shellfish Containing Products Itching Low 11/05/2021 Medications naproxen sodium (ALEVE) 220 mg Tablet Take 220 mg by mouth every 12 hours as needed for Pain, Moderate. Active aspirin-acetami nophen-caffeine (EXCEDRIN EXTRA STRENGTH) 250-250-65 mg Tablet Take 1 Tablet by mouth every 4 hours as needed for Headaches. Active lisinopriL (PRINIVIL) 5 mg tablet Take 5 mg by mouth daily. Active levothyroxine 25 mcg tablet Take 12.5 mcg by mouth daily in the morning. Active cyclobenzaprine (FLEXERIL) 5 mg Tablet Take 1 Tablet (5 mg) by mouth 3 times daily as needed for Spasm. 20 Tablet 1 Active diphenhydrAMINE (BENADRYL) 25 mg tablet Take 1 Tablet (25 mg) by mouth every 6 hours as needed for Allergies or Itching. Active Active Problems Problem Noted Date Diagnosed Date Rash due to allergy 12/09/2023 Migraine without status migrainosus, not intract able 12/03/2023 Acquired hypothyroidism 12/03/2023 Cervical radiculopathy 12/03/2023 Chronic anemia 12/03/2023 Hypertension, essential 10/18/2023 Resolved Problems Problem Noted Date Diagnosed Date Resolved Date Chest pain 12/03/2023 12/09/2023 Elevated troponin 12/03/2023 12/09/2023 Dizziness 12/09/2023 Palpitations 12/09/2023 Encounters Date Type Department Care Team Description 10/08/2024 External Device Data [facility] ABSTRACTION Provider, Abstract 10/08/2024 External Device Data [facility] ABSTRACTION Provider, Abstract 10/08/2024 External Device Data [facility] ABSTRACTION Provider, Abstract 10/02/2024 External Device Data [facility] ABSTRACTION Provider, Abstract 09/10/2024 External Device Data [facility] ABSTRACTION Provider, Abstract from Last 3 Months Family History Medical History Relation Name Comments Hypertension Mother Relation Name Status Comments Mother Social History Tobacco Use Types Packs/Day Years Used Date Smoking Tobacco: Never Smokeless Tobacco: Never Alcohol Use Standard Drinks/Week Comments Not Currently 0 (1 standard drink = 0.6 oz pur e alcohol) Feeling Safe Answer Date Recorded Are you in a relationship wi th someone who hurts you emotionally and/or physically? No 12/09/2023 Food Insecurity Answer Date Recorded Patient needs follow up regardin 08/08/2024 Transportation Needs Answer Date Record ed Patient needs follow up regardin 08/08/2024 Housing Stability Answer Date Recorded Social/Environmental Concerns No concerns Utility Needs Answer Date Recorded Patient needs follow up regardin 08/08/2024 Comments No Sex and Gender Information Value Date Recorded Sex Assigned at Not on file Legal Sex Female 11:09 PM CDT Gender Identity Not on file Sexual Orientation Not on file Last Filed Vital Signs Vital Sign Reading Time Taken Comments Blood Pressure 150/77 12/09/2023 12:56 PM CDT Pulse 111 12/09/2023 12:56 PM CDT Temperature 36.8 C (98.3 F) 12/09/2023 12:56 PM CDT Respiratory Rate 18 12/09/2023 12:56 PM CDT Oxygen Saturation 98% 12/09/2023 12:56 PM CDT Inhaled Oxygen Concentration - - Weight 140 kg (308 lb 9.6 oz) 12/09/2023 1:44 AM CDT Height 165.1 cm (5' 5) 12/09/2023 1:38 AM CDT Body Mass Index 51.35 12/09/2023 1:38 AM CDT Plan of Treatment Health Maintenance Due Date Last Done Comments HEPATITIS B VACCINES (1 of 3 - 19+ 3-dose series) 1998 HPV/Cotest (21-29) 2000 CERVICAL CANCER SCREENING 2009 HPV/Cotest (30-65) 2009 PAP SMEAR 2009 BREAST CANCER SCREENING 2019 COLORECTAL SCREENING 2024 Colorectal Cancer Screening 2024 FIT-DNA Q 3 years 2024 FIT/FOBT Q 1 year 2024 Flex Sig/CT Colonography Q 5 years 2024 INFLUENZA VACCINE (#1) 2024 Pre-Diabetes and Diabetes Screening 12/08/2026 12/09/2023 DTAP/TDAP/TD VACCINES (2 - T d or Tdap) 11/05/2028 11/05/2018 HPV VACCINES Aged Out No longer eligi ble based on patient's age to complete this topic Procedures Procedure Name Priority Date/Time Associated Diagnosis Comments HEMOGLOBIN A1C Routine 12/09/2023 12:15 AM CDT from Last 3 Months or Most Recently Relevant to Health Maintenance Results * (ABNORMAL) HEMOGLOBIN A1C (12/09/2023 12:15 AM CDT) HEMOGLOBIN A1C 5.8(H) <5.7 % 12/09/2023 7:16 AM CDT [facility] EST. AVG GLUCOSE, A1C 120 mg/dL 12/09/2023 7:16 AM CDT [facility] Blood Venipuncture / Unknown 12/09/2023 12:15 AM CDT 12/09/2023 12:19 AM CDT Narrative [facility] - 12/09/2023 7:16 AM CDT HGB A1C INTERPRETATION NORMAL: <5.7% PRE-DIABETES: 5.7 - 6.4% DIABETES: 6.5% OR GREATER Alysa Le HAULING CONTRACTOR CHEMISTRY ORDERABLES Final R esult [facility] ASHLEY# [id number] [address] [place] [address] from Last 3 Months or Most Recently Relevant to Health Maintenance Insurance [employer] [place] MEDICAID RX [facility] Commercial Advance Directives For more information, please contact: [phone] * Full Code (Latest Code Status on File) Date Activated Date Inactivated Comments 12/09/2023 2:27 AM 12/09/2023 4:23 PM * Default Full Code - Needs Discussion Date Activated Date Inactivated Comments 11/06/2021 9:56 AM 11/06/2021 2:47 PM
--- OUTSIDE RECORDS SUMMARY | 2024-10-21 22:55 | XMS_ITS | Clinical Summary ---
Author Organization [facility] [employer] Address [address] [place] [address] Care Team Providers Care Buckle Stringer Name Role Phone [facility], [facility] Primary [facility] ider Source Comments [facility] [employer],non-owned Affiliates and Associated Physician Practices is amultiple site organization consisting of ambulatory clinics and hospital sitesin [place], [place], [place] and [place]. This disclosure is being madepursuant to the Care Everywhere program and may not contain all information available regarding this patient. Last updated 18.[facility] [employer] Allergies Active Allergy Reactions Criticality Noted Date Comments Fish Allergy Itching 05/30/2018 Medications * Be aware that medications may not be up to date on this document. Alwaysverify current medications with the patient. Acetaminophen-Ca ffeine (EXCEDRIN TENSION HEADACHE) 500-65 MGIndications:Mi ld Pain Take 2 tablets by mouth every 6 hours as needed (headache) Reasons: Mild Pain Active cetirizine (ZYRTEC) 10 MG tablet Take 10 mg by mouth once daily Active ASPIRIN LOW DOSE 81 MG 9 Active ibuprofen (MOTRIN) 600 MG tablet Take 1 tablet by mouth every 6 hours as needed for Pain 40 tablet 1 9 Active Additional Information Patient not taking.Reported on 11/15/2018 docusate sodium (COLACE) 100 MG capsule Take 1 capsule by mouth 2 times daily 60 capsule 1 9 Active NIFEdipine CR 24hr (ADALAT CC) 30 MG tablet Take 1 tablet by mouth once daily Take on an empty stomach. 30 tablet 5 9 Active ferrous sulfate 325 (65 FE) MG tabletIndication s:Anemia, unspecified type Take 1 tablet by mouth once daily 100 tablet 9 Active Vit-Fe Fumarate-FA ( VITAMIN WITH IRON) tablet Take 1 tablet by mouth once daily Active oxyCODONE, immediate release, (ROXICODONE) 5 MG tablet Take 1 (one) tablet by mouth every 6 hours as needed for Pain 12 tablet 1 Active Active Problems Patient Care Coordination No te Formatting of this note migh t be different from the original. Nopp/mfcc 05/2018 Has trouble swallowing large tablets/capsules. 11/15/18 Diaper bank form completed, diapers given. Sweet babies bag given. Problem Noted Date Diagnosed Date Anemia 12/24/2018 Pre-eclampsia 12/24/2018 Supervision of high-risk of elderly mu ltigravida 08/16/2018 Overview (08/16/2018): - PNC: C - Datinw3d US w/ unknown LMP - PNL: A-/I/-/-, NR, anti-D antibody (?) - Gc/Chl/Trich: neg/neg/neg - UCx: neg - UDS: neg - Hgb Elec: neg - CF: neg - Genetics: LR female NIPT - Pap: NIL neg HR HPV - Anatomy: today - Family planning: LARC - Breast/bottle: breast Plan: GCT/Tdap/CBC/HIV/syphilis cascade at 28 weeks, GBS at 36wks History of section 08/16/2018 Overview (08/16/2018): History of 3 prior sections - G1 CS for NRFHTs at 36w at [facility] - G2 CS for PTL + breech at 24w at [place] (pt was to bring op note and did not) - G3 SAB - G4 CS for repeat at 36w at [place] Plan: rule out PAS at anatomy scan, rCS at 39wks, request op note from [facility] History of labor 08/16/2018 Overview (08/16/2018): - PTL at 24wks in G2, preceded by vaginal bleeding Rh negative state in antepartum period 9 Overview (08/16/2018): - VB at [facility], given rhogam that day, but had anti-D from blood draw that same day Plan: Re-test antibody screen and titer today, encouraged heterozygosity testing for FOB Morbid obesity 07/05/2018 Assessment & Plan (08/16/2018 11:15 AM CDT): - BMI 44, A1C 5.6 - Declined early GCT. Will obtain at 28wks as scheduled. 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, antepartum condition Anti-D antibodies present in Resolved Problems Problem Noted Date Diagnosed Date Resolved Date Polyhydramnios affecting 11/01/2018 12/24/2018 Overview (11/01/2018): Mild polyhydramnios seen on most recent doppler studies on 11/01 Nausea and vomiting 08/16/2018 11/01/19 19 Overview (08/16/2018): - Improved w/ reglan and now w/o reglan Plan: appreciate pharmacy assistance with JESUS for dicirenegis if patient desires Chronic headaches 07/05/2018 10/31/2018 Assessment & Plan (08/16/2018 11:15 AM CDT): - Since 2006, tension type Plan: continue PRN excedrin, Riboflavin ppx Back pain 07/05/2018 10/31/2018 Anti-D antibodies present during 06/05/2018 12/24/2018 Screening, , for ma lformation by ultrasound 10/31/2018 21 weeks gestation of 09/27/2018 Evaluate anatomy not seen on prior sonogram 10/31/2018 Anti-D antibodies present in in second trimester 09/27/2018 Immunizations Immunization Administration Dates Next Due Rho D Immune Globulin 11/08/2018,05/30/2018 TDAP (7yrs+) 11/05/2018 Social History Tobacco Use Types Packs/Day Years Used Date Smoking Tobacco: Never Smokeless Tobacco: Never Alcohol Use Standard Drinks/Week Comments No 0 (1 standard drink = 0.6 oz pur e alcohol) Comments No Sex and Gender Information Value Date Recorded Sex Assigned at Not on file Legal Sex Female 6:18 AM ANODIZING LINE OPERATOR Gender Identity Not on file Sexual Orientation Not on file Last Filed Vital Signs Vital Sign Reading Time Taken Comments Blood Pressure 137/101 05/16/2020 11:32 PM ANODIZING LINE OPERATOR Pulse 118 05/17/2020 12:00 AM ANODIZING LINE OPERATOR Temperature 36.4 C (97.6 F) 05/16/2020 11:00 PM ANODIZING LINE OPERATOR Respiratory Rate 17 05/16/2020 11:32 PM ANODIZING LINE OPERATOR Oxygen Saturation 98% 05/16/2020 11:32 PM ANODIZING LINE OPERATOR Inhaled Oxygen Concentration - - Weight 113.4 kg (250 lb) 05/16/2020 10:31 PM ANODIZING LINE OPERATOR Height 165.1 cm (5' 5) 05/16/2020 10:31 PM ANODIZING LINE OPERATOR Body Mass Index 41.6 05/16/2020 10:31 PM ANODIZING LINE OPERATOR Plan of Treatment Health Maintenance Due Date Last Done Comments COLOGUARD (AGES 45-75) - COL ON CA SCREENING 1979 COLON MONITORING 1979 COLONOSCOPY - COLON CA SCREENING 1979 CT COLONOGRAPHY - COLON CA SCREENING 1979 Colorectal Cancer Screening 1979 FIT - COLON CA SCREENING 1979 FLEX SIG - COLON CA SCREENING 1979 LIPID TESTING 1979 MAMMOGRAM 1979 HEPATITIS C SCREENING 03/10/1997 HEPATITIS B VACCINE (1 of 3 - 19+ 3-dose series) 1998 COVID-19 VACCINE (2023-2 5 season) 2023 DEPRESSION SCREENING 04/17/2024 INFLUENZA VACCINE (Season Ended) 2024 DTAP/TDAP/TD VACCINES (2 - T d or Tdap) 11/05/2028 11/05/2018 ZOSTER VACCINE (1 of 2) 2029 HIV SCREENING Completed 11/05/2018, 05/30/2018 HIB VACCINE Aged Out No longer eligi ble based on patient's age to complete this topic HPV VACCINE Aged Out No longer eligi ble based on patient's age to complete this topic MENINGOCOCCAL (Group B) VACCINE SHARED DECISION-MAKING Aged Out No longer eligible based on patient's age to complete this topic MENINGOCOCCAL GROUPS A/C/Y/W VACCINE Aged Out No longer eligible b ased on patient's age to complete this topic PNEUMOCOCCAL VACCINE Aged Out No long er eligible based on patient's age to complete this topic Procedures Procedure Name Priority Date/Time Associated Diagnosis Comments HIV-1 HIV-2 ANTIBODY + HIV P24 AG PANEL Routine 11/05/2018 11:44 AM CDT Supervision of high-risk of elderly multigravida from Last 3 Months or Most Recently Relevant to Health Maintenance Results * HIV-1 HIV-2 ANTIBODY + HIV P24 AG PANEL (11/05/2018 11:44 AM CDT) HIV1/2 Ab + P24 Ag Non Reactive Non Reactive 11/05/2018 2:36 PM CDT [facility] Blood BLOOD SPECIMEN / Unknown Venipuncture / Unknown 11/05/2018 11:44 AM CDT 11/05/2018 12:02 PM CDT Narrative [facility] - 11/05/2018 2:36 PM CDT No Laboratory evidence of HIV infection. Sonam Plummer MD LAB - CHEMISTRY ORDERABLES F inal Result Performing Organization Address City/State/[facility] Co de Phone Number [facility] [address] [place] [address] from Last 3 Months or Most Recently Relevant to Health Maintenance Insurance MEDICAID AETNA [facility] [employer] LIABILITY Alliance Party Liability MEDICAID AETNA [facility] [place] Advance Directives * Full Code (Latest Code Status on File) Date Activated Date Inactivated Comments 11/07/2018 7:45 AM 11/11/2018 5:15 PM * Full Code Date Activated Date Inactivated Comments 10/31/2018 1:23 PM 10/31/2018 3:52 PM Care Teams Buckle Stringer Relationship Specialty Start Date End Date [facility], [facility] [address] [place] [address] PCP - General 05/31/18
--- OUTSIDE RECORDS SUMMARY | 2024-10-21 22:55 | XMS_ITS | Clinical Summary ---
Author Organization [facility] Address [address] [place] [address] Care Team Providers Care Paper Bag Maker Name Role Phone Bernie Clifton NP Primary Care Provider [phone] Allergies Active Allergy Reactions Criticality Noted Date Comments Hydrochlorothiazide Rash Medium 12/03/2023 Multiple side effects Iodinated Contrast Media Rash Medium 12/05/2023 Hives, pruritus, feeling of tongue edema (none noted on exam) [place]-3 Fatty Acids Itching Low 11/09/2023 Seafood Shellfish [...] Globulin 11/08/2018,05/30/2018 Td, adsorbed 12/30/1994 Tdap 11/05/2018 Surgical History Surgery Date Site/Laterality Comments SECTION Medical History Medical History Date Comments Hypertension Preeclampsia 2019 Sciatic nerve pain Hypothyroidism Family History Medical History Relation Name Comments Leukemia Father Cancer Mother Thyroid disease Mother Hypertension Mother's Sister Relation Name Status Comments Father Maternal Grandmother Alive Mother Alive Mother's Sister Other Social History Tobacco Use Types Packs/Day Years [...] on file Legal Sex Female 11:24 PM SALES RECRUITING COORDINATOR Gender Identity Not on file Sexual Orientation Not on file Obstetrics History Last Filed Vital Signs Vital Sign Reading Time Taken Comments Blood Pressure 128/86 05/16/2024 7:29 PM SALES RECRUITING COORDINATOR Pulse 94 05/16/2024 7:14 PM SALES RECRUITING COORDINATOR Temperature 36.7 C (98.1 F) 05/16/2024 7:14 PM SALES RECRUITING COORDINATOR Respiratory Rate 18 05/16/2024 7:14 PM SALES RECRUITING COORDINATOR Oxygen Saturation 97% 05/16/2024 7:14 PM SALES RECRUITING COORDINATOR Inhaled Oxygen Concentration - - Weight 135.2 kg (298 lb 1.6 oz) 05/16/2024 7:14 PM SALES RECRUITING COORDINATOR Height 165.1 cm (5' 5) 05/16/2024 7:14 PM SALES RECRUITING COORDINATOR Body Mass Index 49.61 05/16/2024 7:14 PM SALES RECRUITING COORDINATOR Plan of Treatment Health Maintenance Due Date Last Done Comments Cervical Cancer Screening 1979 Colon Cancer Screening-Colonoscopy 1979 Regular Well Visit/Exam 18-64 1997 Influenza Vaccine (#1) 2024 Depression Screening 01/17/2025 01/18/2024, 11/02/2023, 10/18/2023 Breast Cancer Screening-Mammogram 04/08/2025 04/08/2024 DTaP/Tdap/Td Vaccine (2 - Td or Tdap) 11/05/2028 11/05/2018, 12/30/1994 Hepatitis B Screening Completed 10/18/2023 Hepatitis C Screening Completed 10/18/2023 HPV Vaccines Aged Out No longer eligi ble based on patient's age to complete this topic Pneumococcal vaccine <65 Aged Out No longer eligible based on patient's age to complete this topic Procedures Procedure Name Priority Date/Time Associated Diagnosis Comments DIAGNOSTIC MAMMOGRAM BILATERAL W SHELBIE Schedule Routine, Read Routine (OP Routine) 04/08/2024 10:39 AM SALES RECRUITING COORDINATOR Abnormal mammogram HEPATITIS C ANTIBODY Routine 10/18/2023 2:06 PM CDT Encounter for hepatitis C screening test for low risk patient from Last 3 Months or Most Recently Relevant to Health Maintenance Results * Diagnostic Mammogram Bilateral W Shelbie (04/08/2024 10:39 AM SALES RECRUITING COORDINATOR) Anatomical Region Laterality Modality Breast Bilateral Mammography 04/08/2024 12:1 1 PM SALES RECRUITING COORDINATOR Impressions 04/08/2024 12:11 PM SALES RECRUITING COORDINATOR No mammographic or sonographic finding of malignancy in either breast. ACR BI-RADS CATEGORY 2: Benign RECOMMENDATION: Annual screening mammography in 1 year is recommended. Findings and recommendations were communicated to the patient. *The patient's information was entered into a reminder system with a target due date for the next mammogram. Electronically signed by: FRANCIA CAMEJO M.D. Narrative 04/08/2024 12:11 PM SALES RECRUITING COORDINATOR EXAM: DIAGNOSTIC MAMMOGRAM BILATERAL W SHELBIE, US [...] MICROBIOLOGY - GENERAL [place] [id number] [address]athan Oropeza Department [place] [address] from Last 3 Months or Most Recently Relevant to Health Maintenance Insurance [facility] Care Teams Paper Bag Maker Relationship Specialty Start Date End Date Bernie Clifton NP [address] [place] [address] PCP - General Family Medicine 09/26/24
[2024-10-21 23:13] VITALS: BP 138/93; PULSE 98; RESP 20; TEMP 36.7; O2SAT 100
--- NOTE | 2024-10-21 23:21 | ED.SKABFB ---
HPI - Skin/Abscess/Foreign Bdy General Chief complaint: Skin/Abscess/Foreign Body Stated complaint: possible scabies Time Seen by Provider: 10/21/24 23:01 Source: patient Mode of arrival: ambulatory Limitations: no limitations History of Present Illness HPI narrative: Patient is a 44-year-old female who presents the ED with concern for scabies. Patient reports she has been dealing with an itchy rash on her forearms for the past few months intermittently. Has been treated for scabies recently and reported improvement with the cream, but reports symptoms have returned again. She believes this is from an Airbnb that she stayed at. She denies any lesions on her hands, but states her hands have been very itchy. Otherwise denies any new soaps, lotions, detergents, medications. Reports daughters have had similar symptoms. Related Data Home Medications ?Medication ?Instructions ?Recorded ?Confirmed ?Last Taken ?Type hydrochlorothiazide 25 mg tablet 25 mg PO DAILY 10/21/23 10/21/23 Unknown History terbinafine HCl 250 mg tablet 250 mg PO DAILY 10/21/23 10/21/23 Unknown History Allergies Allergy/AdvReac Type Severity Reaction Status Date / Time No Known Allergies Allergy Verified 10/21/24 23:24 Review of Systems Review of Systems: All systems reviewed & are unremarkable except as noted in HPI. All systems reviewed & are unremarkable except as noted in HPI and below PMFSH Past Medical History Medical History History of migraine Surgical History Surgical History History of Social History Social History Smoking status: Never smoker Alcohol intake: current Gender identity (if verbalized by the patient): Female Exam Narrative: GENERAL: Well appearing, morbidly obese with BMI of 50.9, non-toxic, in no acute distress. HEAD: Normocephalic, atraumatic. RESPIRATORY: Airway patent, respirations nonlabored CARDIOVASCULAR: Regular rate and rhythm MUSCULOSKELETAL: Moves all extremities. No gross deformities. SKIN: Warm, dry, normal color. Small areas of erythematous superficial abrasions to jaime ventral forearms. No pustular or vesicular lesions. No urticaria. No rash on hands or in webspaces. NEURO: A&O X3. Speech clear. PSYCHIATRIC: Appropriate mood and affect. Normal interaction. Course Vital Signs Vital signs: Vital Signs Temperature 98.1 F 10/21/24 23:13 Pulse Rate 98 10/21/24 23:13 Respiratory Rate 20 10/21/24 23:13 Blood Pressure 138/93 H 10/21/24 23:13 Pulse Oximetry 100 10/21/24 23:13 Oxygen Delivery Room Air 10/21/24 23:13 Temperature 98.1 F 10/21/24 23:13 Pulse Rate 98 10/21/24 23:13 Respiratory Rate 20 10/21/24 23:13 Blood Pressure 138/93 H 10/21/24 23:13 Pulse Oximetry 100 10/21/24 23:13 Oxygen Delivery Room Air 10/21/24 23:13 MDM - Skin/Abscess/Foreign Bdy MDM Narrative Medical decision making narrative: Differential includes contact dermatitis, eczema, insect bites, urticaria, dermatographia, scabies Patient reported improvement with scabies treatment. Will prescribe permethrin cream. Advised follow-up with PCP for further evaluation. Given return precautions. Discharged in stable condition. Medical Records Attestation: I reviewed the patient's medical records. Discharge Plan Discharge Clinical Impression: Insect bites Qualifiers: Encounter type: initial encounter Site of insect bite: forearm Laterality: unspecified laterality Qualified Code(s): S50.869A - Insect bite (nonvenomous) of unspecified forearm, initial encounter Patient Disposition: Home Condition: Stable Instructions: Antibiotic Form, Contact Dermatitis (ED), Insect Bite or Sting (ED), Scabies (ED) Additional Instructions: Use permethrin cream as directed. You may repeat the treatment 14 days after the 1st treatment of symptoms remain. Wash all clothes and sheets with warm water at home. Sterilize surfaces. Follow-up with your primary care doctor for further evaluation. Patient Language: Montserratian Prescriptions: New permethrin 5 % cream 1 applic topical Q14D Qty: 60 0RF Rx Instructions: Apply to all areas of the body from neck to feet, leave on for 18-14 hours before removing by washing in shower. Apply second treatment 14 days after first treatment if symptoms remain. No Action terbinafine HCl 250 mg tablet 250 mg PO DAILY hydrochlorothiazide 25 mg tablet 25 mg PO DAILY Follow-up/Referrals: UNKNOWN,DOCTOR [Primary Care Provider] - Time of Disposition: 23:29
--- OUTSIDE RECORDS SUMMARY | 2024-10-21 23:30 | XMS_ITS | Clinical Summary ---
Author Organization [facility] Address [address] [place] [address] Care Team Providers Care Loss Prevention Guard Name Role Phone [facility], [facility] Primary Care [facility] ider Source Comments [facility],non-owned Affiliates and Associated Physician Practices is amultiple site organization consisting of ambulatory clinics and hospital sitesin [place], [place], [place] and [place]. This disclosure is being madepursuant to the Care Everywhere program and may not contain all information available regarding this patient. Last updated 18.[facility] Allergies Active Allergy Reactions Criticality Noted Date [...] G1 CS for NRFHTs at 36w at [facility] - G2 CS for PTL + breech at 24w at [facility] (pt was to bring op note and did not) - G3 SAB - G4 CS for repeat at 36w at [place] Plan: rule out PAS at anatomy scan, rCS at 39wks, request op note from [facility] History of labor 08/16/2018 Overview (08/16/2018): [...] on file Legal Sex Female 6:18 AM POOL COORDINATOR Gender Identity Not on file Sexual Orientation Not on file Last Filed Vital Signs Vital Sign Reading Time Taken Comments Blood Pressure 137/101 05/16/2020 11:32 PM POOL COORDINATOR Pulse 118 05/17/2020 12:00 AM POOL COORDINATOR Temperature 36.4 C (97.6 F) 05/16/2020 11:00 PM POOL COORDINATOR Respiratory Rate 17 05/16/2020 11:32 PM POOL COORDINATOR Oxygen Saturation 98% 05/16/2020 11:32 PM POOL COORDINATOR Inhaled Oxygen Concentration - - Weight 113.4 kg (250 lb) 05/16/2020 10:31 PM POOL COORDINATOR Height 165.1 cm (5' 5) 05/16/2020 10:31 PM POOL COORDINATOR Body Mass Index 41.6 05/16/2020 10:31 PM POOL COORDINATOR Plan of Treatment Health Maintenance Due [...] Reactive Non Reactive 11/05/2018 2:36 PM CDT [facility] Blood BLOOD SPECIMEN / Unknown Venipuncture / Unknown 11/05/2018 11:44 AM CDT 11/05/2018 12:02 PM CDT Narrative [facility] - 11/05/2018 2:36 PM CDT No Laboratory evidence of HIV infection. Sonam Plummer MD LAB - CHEMISTRY ORDERABLES F inal Result Performing Organization Address City/State/[facility] Co de Phone Number [facility] [address] [place] [address] from Last 3 Months or Most Recently Relevant to Health Maintenance Insurance MEDICAID AETNA [facility] [employer]AT LIABILITY Democrat Liability MEDICAID AETNA [facility] [place] Advance Directives * Full Code (Latest Code Status on File) Date Activated Date Inactivated Comments 11/07/2018 7:45 AM 11/11/2018 5:15 PM * Full Code Date Activated Date Inactivated Comments 10/31/2018 1:23 PM 10/31/2018 3:52 PM Care Teams Loss Prevention Guard Relationship Specialty Start Date End Date [facility], [facility] [address] [place] [address] PCP - General 05/31/18
--- OUTSIDE RECORDS SUMMARY | 2024-10-21 23:30 | XMS_ITS | Referral Summary ---
Author Organization [facility] Address [address] [place] [address] Care Team Providers Care Paper Sealer Name Role Phone Bernie Clifton NP Primary Care Provider [phone] Allergies Active Allergy Reactions Criticality Noted Date Comments Hydrochlorothiazide Rash Medium 12/03/2023 Multiple side effects Iodinated Contrast Media Rash Medium 12/05/2023 Hives, pruritus, feeling of tongue edema (none noted on exam) [place]-3 Fatty Acids Itching Low 11/09/2023 Seafood Shellfish [...] on file Legal Sex Female 11:24 PM SUPERINTENDENT GAS DISTRIBUTION Gender Identity Not on file Sexual Orientation Not on file Last Filed Vital Signs Vital Sign Reading Time Taken Comments Blood Pressure 128/86 05/16/2024 7:29 PM SUPERINTENDENT GAS DISTRIBUTION Pulse 94 05/16/2024 7:14 PM SUPERINTENDENT GAS DISTRIBUTION Temperature 36.7 C (98.1 F) 05/16/2024 7:14 PM SUPERINTENDENT GAS DISTRIBUTION Respiratory Rate 18 05/16/2024 7:14 PM SUPERINTENDENT GAS DISTRIBUTION Oxygen Saturation 97% 05/16/2024 7:14 PM SUPERINTENDENT GAS DISTRIBUTION Inhaled Oxygen Concentration - - Weight 135.2 kg (298 lb 1.6 oz) 05/16/2024 7:14 PM SUPERINTENDENT GAS DISTRIBUTION Height 165.1 cm (5' 5) 05/16/2024 7:14 PM SUPERINTENDENT GAS DISTRIBUTION Body Mass Index 49.61 05/16/2024 7:14 PM SUPERINTENDENT GAS DISTRIBUTION Plan of Treatment Not on file Procedures Procedure Name Priority Date/Time Associated Diagnosis Comments DIAGNOSTIC MAMMOGRAM BILATERAL W SHELBIE Schedule Routine, Read Routine (OP Routine) 04/08/2024 10:39 AM SUPERINTENDENT GAS DISTRIBUTION Abnormal mammogram HEPATITIS C ANTIBODY Routine 10/18/2023 2:06 PM CDT Encounter for hepatitis C screening test for low risk patient from Last 3 Months or Most Recently Relevant to Health Maintenance Results * Diagnostic Mammogram Bilateral W Shelbie (04/08/2024 10:39 AM SUPERINTENDENT GAS DISTRIBUTION) Anatomical Region Laterality Modality Breast Bilateral Mammography 04/08/2024 12:1 1 PM SUPERINTENDENT GAS DISTRIBUTION Impressions 04/08/2024 12:11 PM SUPERINTENDENT GAS DISTRIBUTION No mammographic or sonographic finding of malignancy in either breast. ACR BI-RADS CATEGORY 2: Benign RECOMMENDATION: Annual screening mammography in 1 year is recommended. Findings and recommendations were communicated to the patient. *The patient's information was entered into a reminder system with a target due date for the next mammogram. Electronically signed by: FRANCIA CAMEJO M.D. Narrative 04/08/2024 12:11 PM SUPERINTENDENT GAS DISTRIBUTION EXAM: DIAGNOSTIC MAMMOGRAM BILATERAL W SHELBIE, US [...] MICROBIOLOGY - GENERAL OR DERABLES Final Result [facility] [id number] [facility] Department [place] [address] from Last 3 Months or Most Recently Relevant to Health Maintenance Insurance AETNA [facility] AETNA [facility] Care Teams Paper Sealer Relationship Specialty Start Date End Date Bernie Clifton NP [facility] [address] [place] [address] PCP - General Family Medicine 09/26/24
--- OUTSIDE RECORDS SUMMARY | 2024-10-21 23:30 | XMS_ITS | Clinical Summary ---
Author Organization [facility] Address [address] [place] [address] Care Team Providers Care Grommet Machine Operator Name Role Phone Bernie Clifton [facility] Primary Care Provider [phone] Allergies Active Allergy Reactions Criticality Noted Date [...] patient's age to complete this topic Insurance [facility] Care Teams Grommet Machine Operator Relationship Specialty Start Date End Date Bernie Clifton FNP-BC [address] [place] [address] [address] [place] [address] PCP - General NURSE PRACTITIONER 01/02/24
--- OUTSIDE RECORDS SUMMARY | 2024-10-21 23:30 | XMS_ITS | Clinical Summary ---
Author Organization [facility] Address [address] [place] [address] Care Team Providers Care Glove Tagger Name Role Phone Bernie Clifton NP Primary Care Provider [phone] Allergies Active Allergy Reactions Criticality Noted Date Comments Hydrochlorothiazide Rash Medium 12/03/2023 Multiple side effects Iodinated Contrast Media Rash Medium 12/05/2023 Hives, pruritus, feeling of tongue edema (none noted on exam) [place]-3 Fatty Acids Itching Low 11/09/2023 Seafood Shellfish [...] on file Legal Sex Female 11:24 PM HOT BLAST WORKER Gender Identity Not on file Sexual Orientation Not on file Obstetrics History Last Filed Vital Signs Vital Sign Reading Time Taken Comments Blood Pressure 128/86 05/16/2024 7:29 PM HOT BLAST WORKER Pulse 94 05/16/2024 7:14 PM HOT BLAST WORKER Temperature 36.7 C (98.1 F) 05/16/2024 7:14 PM HOT BLAST WORKER Respiratory Rate 18 05/16/2024 7:14 PM HOT BLAST WORKER Oxygen Saturation 97% 05/16/2024 7:14 PM HOT BLAST WORKER Inhaled Oxygen Concentration - - Weight 135.2 kg (298 lb 1.6 oz) 05/16/2024 7:14 PM HOT BLAST WORKER Height 165.1 cm (5' 5) 05/16/2024 7:14 PM HOT BLAST WORKER Body Mass Index 49.61 05/16/2024 7:14 PM HOT BLAST WORKER Plan of Treatment Health Maintenance Due Date [...] Read Routine (OP Routine) 04/08/2024 10:39 AM HOT BLAST WORKER Abnormal mammogram HEPATITIS C ANTIBODY Routine 10/18/2023 2:06 PM CDT Encounter for hepatitis C screening test for low risk patient from Last 3 Months or Most Recently Relevant to Health Maintenance Results * Diagnostic Mammogram Bilateral W Shelbie (04/08/2024 10:39 AM HOT BLAST WORKER) Anatomical Region Laterality Modality Breast Bilateral Mammography 04/08/2024 12:1 1 PM HOT BLAST WORKER Impressions 04/08/2024 12:11 PM HOT BLAST WORKER No mammographic or sonographic finding of malignancy in either breast. ACR BI-RADS CATEGORY 2: Benign RECOMMENDATION: Annual screening mammography in 1 year is recommended. Findings and recommendations were communicated to the patient. *The patient's information was entered into a reminder system with a target due date for the next mammogram. Electronically signed by: FRANCIA CAMEJO M.D. Narrative 04/08/2024 12:11 PM HOT BLAST WORKER EXAM: DIAGNOSTIC MAMMOGRAM BILATERAL W SHELBIE, US [...] GENERAL [place] [id number] [facility] Department [place] [address] from Last 3 Months or Most Recently Relevant to Health Maintenance Insurance [facility] Care Teams Glove Tagger Relationship Specialty Start Date End Date Bernie Clifton NP [address] [facility] [address] [place] [address] PCP - General Family Medicine 09/26/24
--- OUTSIDE RECORDS SUMMARY | 2024-10-21 23:30 | XMS_ITS | Clinical Summary ---
Author Organization [facility] Address [address] [place] [address] Phone Care Team Providers Care Home Visitor Home Base Head Start Name Role Phone Unavailable Primary Care Provider [...] 5.8(H) <5.7 % 12/09/2023 7:16 AM CDT [facility] EST. AVG GLUCOSE, A1C 120 mg/dL 12/09/2023 7:16 AM CDT [facility] Blood Venipuncture / Unknown 12/09/2023 12:15 AM CDT 12/09/2023 12:19 AM CDT Narrative [facility] - 12/09/2023 7:16 AM CDT HGB A1C INTERPRETATION NORMAL: <5.7% PRE-DIABETES: 5.7 - 6.4% DIABETES: 6.5% OR GREATER Alysa Le TELEVISION TUBE INSPECTOR CHEMISTRY ORDERABLES Final R esult [facility] ASHLEY# [id number] [address] [place] [address] from Last 3 Months or Most Recently Relevant to Health Maintenance Insurance AETNA [facility] [facility] [place] MEDICAID RX [facility] Commercial Advance Directives For more information, please contact: [phone] * Full Code (Latest Code Status on File) Date Activated Date Inactivated Comments 12/09/2023 2:27 AM 12/09/2023 4:23 PM * Default Full Code - Needs Discussion Date Activated Date Inactivated Comments 11/06/2021 9:56 AM 11/06/2021 2:47 PM
== END 2024-10-22 00:06 | disposition home or self-care (01) ==
LOC: ANHED 23:29
PROVIDERS: Emergency Provider Physician Assistant
DX: S50.862A Insect bite (nonvenomous) of left forearm, initial encounter (principal); S50.861A Insect bite (nonvenomous) of right forearm, initial encounter; W57.XXXA Bitten or stung by nonvenomous insect and other nonvenomous arthropods, initial encounter
CPT/HCPCS: 99283